=== PATIENT | male | born 2000 | race Caucasian/White ===

== ENCOUNTER 2024-02-16 17:15 | Emergency (ER) | payer BC, SELFPAY ==
[2024-02-16 17:21] VITALS: BP 146/83; PULSE 96; TEMP 36.8; O2SAT 100; BMI 25.0
--- NOTE | 2024-02-16 18:11 | ED_ITS ---
HPI - Animal Bite General Chief Complaint: Animal Bite Stated Complaint: Bite - Bat Time Seen by Provider: 02/16/24 18:07 Source: patient Mode of arrival: walk-in Limitations: no limitations History of Present Illness HPI narrative: 23 year old male presents to the ED for an animal bite. States he was bit by a bat on the 5th digit of his left hand approx 1.5 hours [employer]. He was trying to get the bat away from his dog; he picked it up from his yard. Denies fever, chills, weakness, N/T. He has not received the rabies vaccination in the past. Related Data Home Medications ?Medication ?Instructions ?Recorded ?Confirmed buspirone 10 mg tablet 10 mg PO DAILY 02/16/24 02/16/24 lamotrigine 100 mg tablet 100 mg PO .evening 02/16/24 02/16/24 Allergies Allergy/AdvReac Type Severity Reaction Status Date / Time amoxicillin Allergy Severe Rash Verified 02/16/24 17:19 Review of Systems ROS Constitutional Denies: fever or chills Cardiovascular Denies: chest pain Respiratory Denies: shortness of breath Integumentary/Breast Reports: sores and other (bite to 5th digit of left hand.); Denies: rash Neurological Denies: headache, numbness in extremities, weakness in extremities or dizziness Exam Constitutional Vital Signs, click to edit/add: Last Vital Signs Temp 98.3 F 02/16/24 17:21 Pulse 73 02/16/24 18:49 Resp 16 02/16/24 18:49 BP 146/83 H 02/16/24 17:21 Pulse Ox 99 02/16/24 18:49 O2 Del Method Room Air 02/16/24 18:49 Common normals: no apparent distress and oriented x3 General appearance: cooperative HENMT Mouth: oral and palatal mucosa normal, lip normal and tongue normal Eye Common normals: conjunctivae normal and no scleral icterus Neck & C-Spine Common normals: supple Chest Chest: symmetrical chest wall rise Respiratory Common normals: normal respiratory effort Effort & inspection: able to speak in complete sentences and symmetric chest movement Cardio Common normals: regular rate Extremity Other: punctate puncture wound noted to 5th digit of left hand on distal pad of the digit. No erythema, bruising, drainage to area. Area nontender. Pt has full ROM to the digit. Distal sensation intact. Course Vital Signs Vital signs: Vital Signs Temperature 98.3 F 02/16/24 17:21 Pulse Rate 96 H 02/16/24 17:21 Respiratory Rate 20 02/16/24 17:21 Blood Pressure 146/83 H 02/16/24 17:21 Pulse Oximetry 100 02/16/24 17:21 Oxygen Delivery Method Room Air 02/16/24 17:21 Temperature 98.3 F 02/16/24 17:21 Pulse Rate 73 02/16/24 18:49 Respiratory Rate 16 02/16/24 18:49 Blood Pressure 146/83 H 02/16/24 17:21 Pulse Oximetry 99 02/16/24 18:49 Oxygen Delivery Method Room Air 02/16/24 18:49 MDM - Animal Bite MDM Narrative Medical decision making narrative: The patient's rabies vaccination series was started today. He received the rabies vaccination in the right deltoid. The immune globulin was inserted into the 5th digit of the left hand at the site of the bite and to the base of the digit. Due to the large quantity of liquid he was given the remainder of the medication in the left deltoid and in the left gluteal area. His information was provided to central scheduling for follow up at the infusion center for the remaining doses of the vaccination series. Return dates were given to the patient. Differential Diagnosis Differential diagnosis: Likely bite by animal and rabies contact Medical Records Attestation: I reviewed the patient's medical records. Discharge Plan Discharge Stand Alone Forms: Portal Instructions Chief Complaint: Animal Bite Clinical Impression: Bat bite of finger Patient Disposition: Home, Self-Care Time of Disposition Decision: 18:41 Condition: Good Mode of Transportation: Private Vehicle Prescriptions / Home Meds: No Action buspirone 10 mg tablet 10 mg PO DAILY lamotrigine 100 mg tablet 100 mg PO .evening Print Language: Latvian Instructions: Rabies Vaccine (By injection), Rabies Immune Globulin (By injection), Animal Bite (ED), Rabies (ED) Additional Instructions: You will need to return to the infusion center at the hospital for additional doses of the rabies vaccine to complete the series. You should return February 18, February 22, and March 01. Expect a call tomorrow for scheduling. Referrals: CHINO JENKINS [Primary Care Provider] - 1 week Discharge Date/Time: 02/16/24 18:51
[2024-02-16] MEDS: RABIES VACCINE/PF 1 ML VIAL IM (18:32)
[2024-02-16] MEDS: RABIES IMMUNE GLOBULIN/PF 150 UNIT/ML VIAL 1500 UNIT IM (18:34)
[2024-02-16 18:49] VITALS: PULSE 73; O2SAT 99
== END 2024-02-16 18:51 | disposition home or self-care (01) ==
PROVIDERS: Emergency Provider Emergency Medicine; PCP Nurse Practitioner Family
DX: S61.257A Open bite of left little finger without damage to nail, initial encounter (principal); W55.81XA Bitten by other mammals, initial encounter; Z23 Encounter for immunization
CPT/HCPCS: 90376; 90471; 90675; 96372; 99284

== ENCOUNTER 2024-02-24 15:53 | Outpatient (OUT) | payer BC, SELFPAY ==
--- OUTSIDE RECORDS SUMMARY | 2024-02-24 16:05 | XMS_ITS | CCD ---
Author Organization [facility] Care Team Providers Care Lead Ramp Agent Name Role Phone Oscar Morrell Attending Unavailabl e Oscar Morrell Admitting Unavailabl e NON STAFF Primary Care Unavailable HOY ., DR MASSEY Primary Care Unavailable HAY ., DR DO Admitting Unavailable HAY ., DR DO Attending Unavailable HAY ., DR DO Consulting Unavailable HOY ., DR MASSEY Admitting Unavailable HOY ., DR MASSEY Attending Unavailable HOY ., DR MASSEY Consulting Unavailable HOY ., DR MASSEY Primary Care Unavailable KYLE, DR RICO [employer] Consulting Unavailable CHINO JENKINS Admitting Unavailable CHINO JENKINS Attending Unavailable CHINO JENKINS Primary Care Unavailable KYLE, DR RICO [employer] Consulting Unavailable CHINO JENKINS Consulting Unavailable HOY ., DR MASSEY Primary Care Unavailable CHINO JENKINS Admitting Unavailable CHINO JENKINS Attending Unavailable Problems Active Problems Problem Classification Problem Date Documented Da te Episodic/Chronic Other connective tissue disease (1 source) Iliotibial band syndrome, right leg; Translations: [ILIOTIBIAL BAND SYNDROME RIGHT LEG] Onset: 01-26-2023 Episodic Other non-traumatic joint disorders (4 sources) Pain in right knee; Translations: [PAIN IN RIGHT KNEE] Onset: 01-25-2023 Episodic Unclassified (2 sources) CONTACT W/AND (SUSP) EXPOS COVID-19; Translations: [CONTACT W/AND (SUSP) EXPOS COVID-19] Onset: 07-13-2022 Viral infection (1 source) COVID-19; Translations: [COVID-19] Onset: 07-13-2022 Past or Other Problems Problem Classification Problem Date Documented Da te Episodic/Chronic Unclassified (1 source) CONTACT W/AND (SUSP) EXPOS COVID-19; Translations: [CONTACT W/AND (SUSP) EXPOS COVID-19] Onset: 07-10-2022 Results Test Name Value Interpretation Reference Range Facil ity MRI KNEE RT WO CONon 023 MRI KNEE RT WO CON EXAMINATION: MRI KNEE RT WO CON HISTORY: Pain of right knee joint COMPARISON: No relevant comparison available. TECHNIQUE: A complete multi-planar MRI was performed. FINDINGS: MEDIAL COMPARTMENT MEDIAL MENISCUS: Increased signal in the posterior horn consistent with myxoid degeneration, but no tear. CARTILAGE: No visible defect. BONES: No marrow pathology, fracture, or significant arthropathy. MCL AND MEDIAL CAPSULE: Normal medial collateral ligament and medial capsule. LATERAL COMPARTMENT LATERAL MENISCUS: No visible tear or significant degeneration. CARTILAGE: No visible defect. BONES: No marrow pathology, fracture, or significant arthropathy. LCL/POSTEROLAT COMPLEX: Normal lateral collateral ligament, fascicles, lateral capsule and ligaments. ANTERIOR COMPARTMENT PATELLA: No marrow pathology, fracture, or significant arthropathy. CARTILAGE: No visible defect. TENDONS: Normal. EFFUSION: None. No synovitis or loose bodies. ACL: Increased signal mid to distal ligament with intact fibers PCL: Normal appearing ligament. MENISCOFEMORAL: Normal meniscofemoral ligaments. OTHER: Negative. 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 When there are no FDA-approved or cleared tests available, and other criteria are met, FDA can make tests available under an emergency access mechanism called an Emergency Use Authorization (EUA). The EUA for this test is supported by the [employer] Charger of Health and Human Service's declaration that circumstances exist to justify the emergency use of in vitro diagnostics for the detection and/or diagnosis of the virus that causes COVID-19. This EUA will remain in effect for the duration of the COVID-19 declaration justifying emergency of IVDs, unless it is terminated or revoked by the FDA (after which the test may no longer be used). Performed By: #### [facility] #### [facility] [address] [place] [address] Dr. Iona Pires Encounters Encounter Date Encounter Type Care Provider Facility Start: 02-23-2023 End: 02-24-[address] BRYSON DAVENPORT . Facility:[facility] Start: 02-16-2023 ambulatory Oscar Rose cility:[facility] Start: 01-25-[address] BRYSON DAVENPORT . Facili ty:[facility] Start: 12-21-2022 End: 12-22-2022 ambulatory CHINO JENKINS Facility:[facility] Start: 07-10-2022 End: 07-10-[address] BRYSON DAVENPORT . Facility:[facility] Payers Date Payer Category Payer Self-pay 1998 Unknown [id number] 1998 Unknown [id number] 1998 Unknown [id number] 1998 Unknown [id number] 1959 Unknown [id number] Clinical Note 12-21-2022 Note Date & Type Note Facility 12-21-2022 Note PROCEDURE: XR KNEE R T 4V or > COMPARISON: None. HISTORY: Paresthesia FINDINGS: BONES:No fracture, acute abnormality, or significant arthropathy. SOFT TISSUES:Negative. No visible soft tissue swelling. EFFUSION:None visible. OTHER: Negative. IMPRESSION: No acute disease. Electronically authenticated by: RICO WRIGHT Date: 2022-12-21 12:51 [facility] Summary Purpose Family History No Family History Records FoundNo Family History Records Found Advance Directives No Advanced Directives Records FoundNo Advanced Directives Records Found Additional Source Comments (unrecognized sect ion and content) No Status Records FoundNo Status Records Found INFORMATION SOURCE (unrecogn ized section and content) DATE CREATED AUTHOR 02/18/2023 [facility] DATE CREATED AUTHOR AUTHOR'S ORGANIZ ATION 02/24/2023 [facility] FOR RECORDS PERTAINING TO PATIENTS WHO ARE OR HAVE BEEN ENROLLED IN A CHEMICAL DEPENDENCY/SUBSTANCEABUSE PROGRAM, SOME INFORMATION MAY BE OMITTED. This clinical summary was aggregated from multiple sources. Caution should be exercised in using it in the provision of clinical care. This summary normalizes information from multiple sources, and as a consequence, information in this document may materially change the coding, format and clinical context of patient data. In addition, data may be omitted in some cases. CLINICAL DECISIONS SHOULD BE BASED ON THE PRIMARY CLINICAL RECORDS. [facility] [employer] [facility]. provides no warranty or guarantee of the accuracy or completeness of information in this document.
[2024-02-24 16:10] LABS: Basophils Absolute Auto 0.1 10^3/uL (0.0-0.1); Eosinophils Absolute Auto 0.4 10^3/uL (0.0-0.7); Eosinophils Percent Auto 6.8 % (0.9-7.0); Hematocrit 38.6 % (42.0-54.0); Hemoglobin 12.9 g/dL (14.0-18.0); Immature Granulocytes Abs Auto 0.01 10^3/uL (0.00-0.03); Immature Granulocytes Pct Auto 0.2 % (0.0-0.5); Lymphocytes Absolute Auto 2.3 10^3/uL (1.2-3.8); Lymphocytes Percent Auto 39.4 % (20.5-60.0); Mean Corpuscular HGB Conc 33.4 g/dL (29.9-35.2); Mean Corpuscular Hemoglobin 28.3 pg (25.9-34.0); Mean Corpuscular Volume 84.6 fL (80.0-94.0); Mean Platelet Volume 10.1 fL (9.5-13.5); Monocytes Absolute Auto 0.6 10^3/uL (0.3-0.8); Monocytes Percent Auto 9.7 % (1.7-12.0); Neutrophils Absolute Auto 2.5 10^3/uL (1.4-6.5); Neutrophils Percent Auto 42.9 % (43.0-75.0); Platelet Count 303 10^3/uL (150-450); Red Blood Count 4.56 10^6/uL (4.70-6.10); Red Cell Distribution Width 12.4 % (11.0-15.0); White Blood Count 5.9 10^3/uL (4.0-11.0)
== END 2024-02-24 15:54 | disposition home or self-care (01) ==
LOC: LAB 15:55
PROVIDERS: PCP Nurse Practitioner Family; Visit Provider Nurse Practitioner Family
DX: G25.81 Restless legs syndrome (principal)
CPT/HCPCS: 36415; 83540; 85025